=== PATIENT | female | born 1990 | race Two or more races ===

== ENCOUNTER 2019-04-27 10:44 | Emergency (ER) | payer MEDICAID ==
[~2019-04-27] VITALS: Ht 160 cm; Wt 63.5 kg
[2019-04-27] MEDS ORDERED: VENL37.55 PO (10:48)
--- NOTE | 2019-04-27 11:10 | NUR ---
PT ENDORSED TO ME BY NORMA ARAGON
--- NOTE | 2019-04-27 11:13 | NUR ---
ROMAIN FROM OUTPATIENT CLASS C/O WEAKNESS AND DIZZINESS S/P TAKING EFFEXOR PT APPEARS ANXIOUS. STATES HAVING HAD SOME CHEST TIGHTNESS. NO ACUTE DISTRESS NOTED. DENIES SOB, N/V. NO OTHER COMPLAINTS AT THIS TIME. ON MONITOR AND READY FOR EVAL.
--- NOTE | 2019-04-27 12:02 | NUR ---
DR LINCOLN AT BEDSIDE FOR EVAL.
[2019-04-27 12:36] LABS: BASOPHILS # (AUTO) 0.1 /CMM (0.0-0.2); BASOPHILS % (AUTO) 0.5 % (0.0-2.0); EOSINOPHILS % (AUTO) 0.7 % (0.0-6.0); HEMATOCRIT 32 % (33-45); LYMPHOCYTES # (AUTO) 1.5 /CMM (0.8-4.8); LYMPHOCYTES % (AUTO) 13.6 % (20.0-44.0); MEAN CORPUSCULAR HGB CONC 32 g/dl (31.0-36.0); MEAN CORPUSCULAR VOLUME 74 fL (82-100); MONOCYTES # (AUTO) 0.9 /CMM (0.1-1.30); MONOCYTES % (AUTO) 7.6 % (2.0-12.0); NEUTROPHILS # (AUTO) 8.7 /CMM (1.8-8.9); NEUTROPHILS % (AUTO) 77.6 % (43.0-81.0); PLATELET COUNT (AUTO) 427 /CMM (150-450); RED BLOOD CELL COUNT(AUTO) 4.25 MIL/uL (4.0-5.2); WHITE BLOOD COUNT (AUTO) 11.3 K/uL (4.3-11.0)
[2019-04-27 12:42] LABS: CALCIUM, SERUM 8.7 mg/dL (8.5-10.1); CARBON DIOXIDE 29 mmol/L (21-32); CHLORIDE 104 mmol/L (98-107); CREATININE 0.8 mg/dL (0.6-1.3); GLUCOSE 113 mg/dL (74-106); POTASSIUM 3.6 mmol/L (3.5-5.1); SODIUM SERUM 141 mmol/L (136-145); UREA NITROGEN, BLOOD 14 mg/dL (7-18)
[2019-04-27 12:48] LABS: PHOSPHORUS 4.4 mg/dL (2.5-4.9)
--- NOTE | 2019-04-27 13:20 | NUR ---
IV removed. Catheter intact and site benign. Pressure and 4x4 applied to site. No bleeding noted.Patient discharged to home in stable condition. Written and verbal after care instructions given. Patient verbalizes understanding of instruction.
[2019-04-27 13:31] VITALS: BP 129/62
== END 2019-04-27 13:20 | disposition home or self-care (01) ==
LOC: ER 10:48
DX: R07.89 Other chest pain (principal); F41.0 Panic disorder [episodic paroxysmal anxiety]; F20.9 Schizophrenia, unspecified; Z88.0 Allergy status to penicillin; Z88.2 Allergy status to sulfonamides; Z88.6 Allergy status to analgesic agent; Z79.899 Other long term (current) drug therapy
CPT/HCPCS: 36415; 71045-TC; 80048-TC; 83735-TC; 84100-TC; 84484-TC; 85025-TC